=== PATIENT | male | born 1975 | race Two or more races ===

== ENCOUNTER 2017-01-14 10:20 | Emergency (ER) | payer OTHER ==
[2017-01-14 10:26] VITALS: BP 118/59; BMI 29.2
--- NOTE | 2017-01-14 10:49 | PDOC ---
History of Present Illness - General Chief Complaint: Sore Throat Stated Complaint: FEVER, SORE THROAT Time Seen by Provider: 01/14/17 10:44 History Source: Patient Exam Limitations: No Limitations - History of Present Illness Initial Comments: 01/14/17 10:49 CHIEF COMPLAINT: Fever HISTORY OF PRESENT ILLNESS: This is an otherwise healthy 41 year old male who presents for evaluation of subjective fevers/chills, throat pain/painful swallowing, and upper abdominal pain since last night. He denies travel or sick contacts. He has not had shortness of breath, cough, difficulty swallowing his own secretions, or any other symptoms. Vital signs on arrival are notable for oral temp 101.1 and P 110. Past History - Past Medical History Allergies/Adverse Reactions: Allergies Allergy/AdvReac Type Severity Reaction Status Date / Time No Known Allergies Allergy Verified 01/14/17 10:26 Home Medications: Ambulatory Orders NK [No Known Home Medication] 01/14/17 Other medical history: DENIES - Psycho/Social/Smoking Cessation Hx Suicidal Ideation: No Smoking History: Never smoked Information on smoking cessation initiated: No Hx Alcohol Use: No Drug/Substance Use Hx: No Substance Use Type: None Review of Systems - Review of Systems Constitutional: Yes: Chills, Fever. No: Malaise, Night Sweats, Weakness, Unintentional Wgt. Loss HEENTM: Yes: Throat Pain, Difficulty Swallowing Respiratory: No: Cough, Shortness of Breath, Stridor, Wheezing ABD/GI: Yes: Abdominal cramping. No: Abdominal Distended, Constipated, Diarrhea , Rectal Bleeding, Vomiting *Physical Exam - Vital Signs Last Vital Signs Temp Pulse Resp BP Pulse Ox 101.1 F H 110 H 19 118/59 98 01/14/17 10:24 01/14/17 10:24 01/14/17 10:24 01/14/17 10:24 01/14/17 10:24 - Physical Exam General Appearance: Yes: Nourished, Appropriately Dressed. No: Apparent Distress HEENT: positive: EOMI, STACIA, Tonsillar Exudate, Tonsillar Erythema. negative: TM Erythema Neck: positive: Trachea midline, Supple Respiratory/Chest: positive: Lungs Clear, Normal Breath Sounds Cardiovascular: positive: Regular Rate, S1, S2. negative: Edema, JVD, Murmur Gastrointestinal/Abdominal: positive: Tender (epigastrium), Soft. negative: Guarding, Rebound Medical Decision Making - Medical Decision Making 01/14/17 11:45 A/P: 41 year old male with fever, throat pain, and epigastric pain. 1. Rapid strep/culture 2. Empiric treatment for strep pharyngitis - Bicillin 1.2 million units IM 3. Motrin for pain/fever 4. Decadron 10mg po 5. Re-assess Repeat temp 103- Tylenol and oral fluids given. 01/14/17 12:14 Rapid strep positive. 01/14/17 12:27 Repeat temp 100, HR 95. Tolerating well. Will dc with followup and return precautions. *DC/Admit/Observation/Transfer Diagnosis at time of Disposition: Strep pharyngitis - Discharge Dispostion Disposition: HOME Condition at time of disposition: Improved Admit: No - Referrals Referrals: Babs Maxwell MD [Primary Care Provider] - Call tomorrow - Patient Instructions Printed Discharge Instructions: DI for Strep Throat Additional Instructions: -Rest and stay well-hydrated -Take ibuprofen as prescribed for pain and fever -You were given a one-time dose of antibiotics -Follow up with your primary care doctor -Return here for inability to swallow fluids, difficulty breathing, or any other concerning symptoms - Post Discharge Activity Work/School Note: Back to Work
[2017-01-14] MEDS ORDERED: IBUPROFEN 600 MG TABLET (FP) PO ONE ×2 (10:53→10:58)
[2017-01-14] MEDS ORDERED: PENICILLIN G BENZATHINE 1,200,000 UNIT/2 ML PFS IM ONE (10:53)
[2017-01-14] MEDS ORDERED: DEXAMETHASONE LIQUID 0.5 MG/5 ML 240 ML BULK BOTTLE PO ONE (10:53)
[2017-01-14] MEDS ORDERED: DEXAMETHASONE SOD PHOSPHATE 10 MG/1 ML VIAL ONE (10:58)
[2017-01-14] MEDS ORDERED: PENICILLIN G BENZATHINE 2,400,000 UNIT/4 ML PFS ONE (10:59)
[2017-01-14] MEDS ORDERED: ACETAMINOPHEN 500 MG TABLET (FP) PO ONE (11:46)
[2017-01-14] MEDS ORDERED: ACETAMINOPHEN 325 MG TABLET (FP) ONE (11:49)
[2017-01-14 12:28] VITALS: PULSE 95; TEMP 100
== END 2017-01-14 12:33 | disposition home or self-care (01) ==
LOC: JERFT 10:20
DX: J02.0 Streptococcal pharyngitis (principal); B95.0 Streptococcus, group A, as the cause of diseases classified elsewhere
CPT/HCPCS: 87070; 87430; 96372; 99281-25

== ENCOUNTER 2017-11-19 23:30 | Emergency (ER) | payer OTHER ==
[2017-11-19 23:39] VITALS: BP 128/69; PULSE 78; TEMP 98; BMI 27.8
[2017-11-20] MEDS ORDERED: valACYclovir HCL 1000 MG TABLET PO ONE (01:31)
--- NOTE | 2017-11-20 01:31 | PDOC ---
History of Present Illness - General Chief Complaint: Weakness Stated Complaint: FATIGUE Time Seen by Provider: 11/20/17 00:58 - History of Present Illness Initial Comments: 11/20/17 02:32 42m within prediabetes presenbts with generalized fati. History of recurrent herpes lesions for the past 3 days. Also complains of rash over nose and under right eye. No other complains, otherwise healthy, Past History - Past Medical History Allergies/Adverse Reactions: Allergies Allergy/AdvReac Type Severity Reaction Status Date / Time No Known Allergies Allergy Verified 11/19/17 23:39 Home Medications: Ambulatory Orders NK [No Known Home Medication] 01/14/17 - Suicide/Smoking/Psychosocial Hx Smoking History: Never smoked Have you smoked in the past 12 months: No Information on smoking cessation initiated: No Hx Alcohol Use: No Drug/Substance Use Hx: No Substance Use Type: None Review of Systems - Review of Systems Able to Perform ROS?: Yes Is the patient limited Prydeinig proficient: No Constitutional: Yes: Malaise HEENTM: Yes: See HPI Respiratory: No: Symptoms reported Cardiac (ROS): No: Symptoms Reported ABD/GI: No: Symptoms Reported : No: Symptoms Reported Musculoskeletal: No: Symptoms Reported Integumentary: No: Symptoms Reported Neurological: No: Symptoms reported All Other Systems: Reviewed and Negative *Physical Exam - Vital Signs Last Vital Signs Temp Pulse Resp BP Pulse Ox 98.0 F 78 16 128/69 100 11/19/17 23:37 11/19/17 23:37 11/19/17 23:37 11/19/17 23:37 11/19/17 23:37 - Physical Exam General Appearance: Yes: Nourished, Appropriately Dressed. No: Apparent Distress, Alcohol on Breath HEENT: positive: EOMI, STACIA, Normal ENT Inspection, Other (maculovesicular rash over nose and under right eye) Respiratory/Chest: positive: Lungs Clear, Normal Breath Sounds. negative: Chest Tender, Respiratory Distress Cardiovascular: positive: Regular Rhythm, Regular Rate, S1, S2 Gastrointestinal/Abdominal: positive: Normal Bowel Sounds, Flat, Soft. negative : Tender Neurologic: positive: Fully Oriented, Alert, Normal Mood/Affect Medical Decision Making - Medical Decision Making 11/20/17 02:36 Looks like herpetic lesion Gave patient Valtrex but elopped shortly after, before nurse had a chance to get bloodwork. *DC/Admit/Observation/Transfer Diagnosis at time of Disposition: Zoster - Discharge Dispostion Disposition: ELOPED - Referrals - Patient Instructions - Post Discharge Activity
[2017-11-20] MEDS ORDERED: valACYclovir HCL 500 MG TABLET (FP) PO ONE (01:45)
== END 2017-11-20 02:34 | disposition left against medical advice (07) ==
LOC: JER 23:30
DX: B02.9 Zoster without complications (principal)
CPT/HCPCS: 99281-25

== ENCOUNTER 2018-09-17 13:52 | Emergency (ER) | payer OTHER ==
[2018-09-17 14:12] VITALS: BP 126/80; PULSE 80; TEMP 97.7; BMI 29.8
--- NOTE | 2018-09-17 14:56 | PDOC ---
History of Present Illness - General Chief Complaint: Chest Pain Stated Complaint: COUGH / CONGESTION Time Seen by Provider: 09/17/18 14:17 History Source: Patient - History of Present Illness Timing/Duration: reports: other Past History - Past Medical History Allergies/Adverse Reactions: Allergies Allergy/AdvReac Type Severity Reaction Status Date / Time No Known Allergies Allergy Verified 11/19/17 23:39 Home Medications: Ambulatory Orders NK [No Known Home Medication] 01/14/17 Cancer: No Cardiac Disorders: No CVA: No COPD: No CHF: No - Suicide/Smoking/Psychosocial Hx Smoking History: Never smoked Have you smoked in the past 12 months: No Hx Alcohol Use: No Drug/Substance Use Hx: No Substance Use Type: None Review of Systems - Review of Systems Constitutional: No: Chills, Fever Respiratory: Yes: Cough. No: Shortness of Breath, Hemoptysis Cardiac (ROS): Yes: Chest Pain *Physical Exam - Vital Signs Last Vital Signs Temp Pulse Resp BP Pulse Ox 97.7 F 80 20 126/80 100 09/17/18 14:09/17/18 14:09/17/18 14:09/17/18 14:09/17/18 14:09 - Physical Exam General Appearance: Yes: Appropriately Dressed. No: Apparent Distress HEENT: positive: Normal ENT Inspection, Normal Voice, TMs Normal, Pharynx Normal. negative: Scleral Icterus (R), Scleral Icterus (L) Neck: positive: Supple. negative: Lymphadenopathy (R), Lymphadenopathy (L) Respiratory/Chest: positive: Lungs Clear, Normal Breath Sounds. negative: Respiratory Distress Cardiovascular: positive: Regular Rate, S1, S2 Integumentary: positive: Dry, Warm Neurologic: positive: Fully Oriented, Alert, Normal Mood/Affect Medical Decision Making - Medical Decision Making 09/17/18 14:54 42-year-old male, denies any past medical history and nonsmoker, here with mostly dry cough 2 weeks. Reports chest pain only w/ coughing. Denies any hemoptysis, shortness of breath, fever or chills. 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 Has not taken anything for symptoms. Patient well-appearing and stable with normal exam. EKG was done in triage and was negative. Dc with supportive treatment and PMD follow-up as needed *DC/Admit/Observation/Transfer Diagnosis at time of Disposition: Cough - Discharge Dispostion Disposition: HOME - Referrals - Patient Instructions Printed Discharge Instructions: Cough Additional Instructions: Your cough might be due to viral or allergic source. You can try [id number] cough meds such as Robitussin or Delsym. If you have sneezing itchy/watery eyes or nasal congestion, you can try Zyrtec or Claritin. Use mask at work when exposed to chemicals as lung irritation can also produce cough. Please follow-up with your doctor as needed - Post Discharge Activity
--- NOTE | 2018-09-18 10:01 | EKG ---
Test Reason : Blood Pressure : / mmHG Vent. Rate : 071 BPM Atrial Rate : 071 BPM P-R Int : 184 ms QRS Dur : 078 ms QT Int : 424 ms P-R-T Axes : 038 006 045 degrees QTc Int : 460 ms NORMAL SINUS RHYTHM NORMAL ECG NO PREVIOUS ECGS AVAILABLE Confirmed by MIREYA OTTO MD ([id number]) on 09/18/2018 10:01:50 AM Referred By: Confirmed By:MIREYA OTTO MD
== END 2018-09-17 15:18 | disposition home or self-care (01) ==
LOC: JERFT 13:52
DX: R05 Cough (principal)
CPT/HCPCS: 93005; 93010; 99281-25

== ENCOUNTER 2021-12-11 18:52 | Emergency (ER) | payer OTHER ==
[2021-12-11 19:32] VITALS: BP 132/85; PULSE 81; RESP 19; TEMP 98.1; BMI 24.4
[2021-12-11] MEDS ORDERED: DEXAMETHASONE SOD PHOSPHATE 10 MG/1 ML VIAL PO ONE (21:08)
[2021-12-11] MEDS ORDERED: DEXAMETHASONE SOD PHOSPHATE 10 MG/1 ML VIAL ONE (21:18)
== END 2021-12-11 21:45 | disposition home or self-care (01) ==
LOC: JER 18:52
DX: J02.0 Streptococcal pharyngitis (principal)
CPT/HCPCS: 0241U-QW; 87651; 99283-25; J1100